=== PATIENT | male | born 1950 | race Caucasian/White ===

== ENCOUNTER 2016-11-21 06:37 | Inpatient (IN) | payer MEDICARE, BC ==
--- NOTE | 2016-11-17 13:24 | PREOPHP ---
DATE OF ADMISSION: 11/21/2016 PREOPERATIVE INTERNAL MEDICINE CONSULTATION, MEDICAL HISTORY AND PHYSICAL The patient to have surgery with Dr. Cayetano Cerda, 11/21/2016. REASON FOR CONSULTATION: Consultation requested by Dr. Cayetano Cerda for medical evaluation and evette arance of a 66-year-old gentleman about to undergo surgery on his cervical spine. Thank you, Dr. Cerda, for allowing us to participate in the care of this patient. HISTORY OF PRESENT ILLNESS: Aamir Sarabia, a 66-year-old gentleman, painful neck, associated neck di scogenic disease, is currently being admitted for correction of the above problem for an anterior ce rvical diskectomy and fusion, C6-C7. PAST SURGICAL HISTORY: He has had a retinal detachment on his left eye, left knee arthroscopic surg zeb x2, cataracts right and left, and plastic surgery in terms of parts of his body. He has had no medical hospitalizations. ALLERGIES: HE IS NOT ALLERGIC TO ANY MEDICATIONS, HOWEVER, IS ALLERGIC TO EGG PRODUCTS. MEDICATIONS: Other than that, his only medications are acyclovir 200 mg a day, and vitamins and min erals and supplements. SOCIAL HISTORY: The patient is single, has no children, does not smoke. Alcohol socially. Does no t drink coffee regularly, is retired currently and usually has no difficulty sleeping at night. FAMILY HISTORY: Both parents are . Father age 71 of a ruptured aortic aneurysm. Moth er, 60, of lung cancer. She was a smoker. One sister is in good health. Other than the above hist ory, he knows of no family history of diabetes, heart, hypertension or stroke, only cancer and that mentioned above. REVIEW OF SYSTEMS: HEENT: Periodic migraine headaches. CARDIORESPIRATORY: Denies any chest pain or shortness of breath. GASTROINTESTINAL: No melena or hematemesis. GENITOURINARY: No urgency, frequency. MUSCULOSKELETAL: Positive for neck pain, as well as knee pain. NEUROPSYCHIATRIC: Unremarkable. GENERAL HEALTH: As above. PHYSICAL EXAMINATION: VITAL SIGNS: The patient's blood pressure was 140/80, pulse was 88 and regular, respirations were 1 8, temperature 98.7, height 6 feet 1 inch, weight 214 pounds. GENERAL: The patient was noted to be a well-developed, well-nourished male, alert and cooperative, in no apparent acute distress, oriented to time, place, and person. HEAD, EARS, EYES, NOSE AND THROAT: Head was atraumatic. Eyes: Pupils were equal, reactive to ligh t and accommodation. Fundi were benign. Tympanic membranes were unremarkable. Nose was negative. Mouth was unremarkable. Fair oral hygiene was present. NECK: Supple without any rigidity. Trachea was midline. Thyroid was unremarkable. Neck veins wer e flat. Carotid pulses were equal. No bruits were heard. BACK: Exam was unremarkable. CHEST: Symmetrical. BREASTS AND AXILLARY: Exam did not reveal any masses. LUNGS: Clear to percussion and auscultation. HEART: PMI was 5th intercostal space at the midclavicular line. A regular sinus rhythm was noted. No significant murmurs, rubs, or gallops being elicited. ABDOMEN: Soft, good bowel sounds were noted. No significant organomegaly, masses, or tenderness. GENITALIA: Normal male external genitalia. RECTAL AND PROSTATIC EXAM: Per PCP. EXTREMITIES: Did not reveal any clubbing, edema or cyanosis. Peripheral pulses were physiologic. SKIN: Moist and warm without any eruptions. No gross lymphadenopathy was noted. NEUROLOGIC: Exam is grossly intact. IMPRESSION: 1. Cervical disk disease. 2. Stable health. DISCUSSION: Review of laboratory and other data revealed the following: The patient's chemistry pa vladimir including glucose, BUN, creatinine and liver function test, magnesium, iron were normal, and nor mal TSH, minimally low vitamin D, normal CBC, PT and PTT as well. The patient's bladder scan reveal ed a residual of 13 mL, which is normal. His EKG was normal as was his chest x-ray. DISCUSSION: Dr. Cerda, I see no contraindication in this patient undergoing current proposed danny finn under desired form of anesthesia; feel he is a suitable candidate at this particular point in t dio, and will be more than happy to follow him with you during his stay at [facility]. Thank you again, Dr. Cerda, for allowing us to participate in care of this patient. Dictated By: ALIZE BREEN MD SS/NTS Conf#: [id number] DID#: [id number] CC: CAYETANO CERDA MD;*EndCC*
[2016-11-18 13:40] VITALS: BMI 28.3
[2016-11-21] VITALS (25 sets, daily range): BP systolic 129–159; BP diastolic 79–100; PULSE 70–100; RESP 11–25; Ht 185.4 cm; Wt 96.6 kg
[~2016-11-21] VITALS: Ht 185.4 cm; Wt 96.6 kg
[~2016-11-21 06:37] MED LIST: LACTATED RINGER'S 1,000 ML IV SCH
[2016-11-21] MEDS ORDERED: CEFAZOLIN 2 GM/50 ML (PMX) 50 ML IVPB SCH (07:00)
[2016-11-21] MEDS ORDERED: ROCURONIUM 50 MG INJ ONE (08:41)
[2016-11-21] MEDS ORDERED: FENTAnyl 50 MCG/ML VIAL ONE ×3 (08:41→13:04)
[2016-11-21] MEDS ORDERED: ETOMIDATE 20 MG INJ ONE (08:41)
[2016-11-21] MEDS ORDERED: SUCCINYLCHOLINE CHLORIDE 100 MG/5 ML SYG IV ONE (08:41)
[2016-11-21] MEDS ORDERED: LIDOCAINE 2% (SDV) 5 ML INJ ONE (08:41)
[2016-11-21] MEDS ORDERED: MIDAZOLAM 1 MG/ML 2 ML INJ ONE (08:41)
[2016-11-21] MEDS ORDERED: ACYC200C2 PO (08:44)
[2016-11-21] MEDS ORDERED: DIPHENHYDRAMINE 50 MG INJ IV PRN (09:00)
[2016-11-21] MEDS ORDERED: METOCLOPRAMIDE 10 MG INJ IV PRN (09:00)
[2016-11-21] MEDS ORDERED: ONDANSETRON 4 MG INJ IV PRN ×2 (09:00→14:00)
[2016-11-21] MEDS ORDERED: OXYCODONE/ACETAMINOPHEN (5/325) TAB PO PRN ×2 (09:00)
[2016-11-21] MEDS ORDERED: MEPERIDINE 25 MG INJ IV PRN (09:00)
[2016-11-21] MEDS ORDERED: FENTAnyl 50 MCG/ML VIAL IV PRN (09:00)
[2016-11-21] MEDS ORDERED: PROCHLORPERAZINE 10 MG INJ IV PRN (09:00)
[2016-11-21] MEDS ORDERED: HYDROmorphONE (0.2 MG/ML) 10ML SYG IV PRN ×2 (09:00)
[2016-11-21] MEDS ORDERED: POLYMYXIN/BACITRACIN 1L IRRIG ONE ×2 (09:36→09:38)
[2016-11-21] MEDS ORDERED: THROMBIN 5000 UNIT VIAL ONE (09:36)
[2016-11-21] MEDS ORDERED: GELATIN SIZE 100 SPONGE ONE (09:36)
[2016-11-21] MEDS ORDERED: BUPIVACAINE 0.25% (MPF) 10 ML 10 ML VIAL ONE (09:36)
[2016-11-21] MEDS ORDERED: OCULAR LUBRICANT 3.5 GM OPH OINT ONE (09:48)
[2016-11-21] MEDS ORDERED: DEXAMETHASONE 4 MG/ML 1 ML INJ ONE (10:19)
[2016-11-21] MEDS ORDERED: ONDANSETRON 4 MG INJ ONE ×2 (10:19→12:42)
[2016-11-21] MEDS ORDERED: POVIDONE IODINE 10% 28.4 GM OINT ONE (10:22)
[2016-11-21] MEDS ORDERED: LABETALOL HCL 20MG INJ ONE (10:53)
[2016-11-21] MEDS ORDERED: HYDROmorphONE 2 MG/ML SYG ONE (10:56)
[2016-11-21] MEDS ORDERED: GLYCOPYRROLATE 1 MG INJ ONE (12:41)
[2016-11-21] MEDS ORDERED: NEOSTIGMINE 3 MG/3 ML SYRINGE ONE (12:41)
[2016-11-21] MEDS ORDERED: CEPASTAT LOZENGE MT PRN (14:00)
[2016-11-21] MEDS ORDERED: BETHANECHOL 25 MG TAB PO PRN (14:00)
[2016-11-21] MEDS ORDERED: PROCHLORPERAZINE 10 MG TAB PO PRN (14:00)
[2016-11-21] MEDS ORDERED: DIAZEPAM 5 MG/ML SYG IM PRN (14:00)
[2016-11-21] MEDS ORDERED: DIAZEPAM 5 MG TAB PO PRN (14:00)
[2016-11-21] MEDS ORDERED: AL HYDROX/MG HYDROX/SIMETH 30 ML CUP PO PRN (14:00)
[2016-11-21] MEDS ORDERED: NALOXONE (0.4 MG/ML) INJ IV PRN (14:00)
[2016-11-21] MEDS ORDERED: ZOLPIDEM 5 MG TAB PO PRN ×2 (14:00→23:30)
[2016-11-21] MEDS ORDERED: NACL 0.9% 3 ML SYG IV SCH (14:00)
[2016-11-21] MEDS ORDERED: DIPHENHYDRAMINE 50 MG CAP PO PRN (14:00)
[2016-11-21] MEDS ORDERED: HYDROCODONE/APAP (5/325) TAB PO PRN ×2 (14:00)
[2016-11-21] MEDS ORDERED: ACETAMINOPHEN 325 MG TAB PO PRN (14:00)
[2016-11-21] MEDS ORDERED: TRIMETHOBENZAMIDE 100 MG/ML VIAL IM PRN (14:00)
[2016-11-21] MEDS: HYDROmorphONE 0.2 MG/ML PCA IV SCH ×2 (14:09→23:38)
--- NOTE | 2016-11-21 15:05 | RADRPT ---
PROCEDURE: XR Cervical Spine. CLINICAL INDICATION: Neck pain. Intraoperative. TECHNIQUE: 8 images of the cervical spine were obtained in the operating room. Multiple frontal an d lateral views were obtained. The images were reviewed on a PACS workstation. COMPARISON: None. FINDINGS: Final images demonstrate anterior fusion with plate and screws at C6-7. IMPRESSION: 1. Intraoperative imaging of the cervical spine. RPTAT: QQ .Christiano Adler MD, MD Date Time Electronically viewed and signed by .Christiano Adler MD, on 11/21/2016 15:04 .R/
--- NOTE | 2016-11-21 16:10 | OPR ---
DATE OF OPERATION: 11/21/2016 PREOPERATIVE DIAGNOSIS: Herniated disk C6-7 on the right. POSTOPERATIVE DIAGNOSIS: Herniated disk C6-7 on the right. OPERATION PERFORMED: 1. Anterior cervical microdiskectomy at C6-7. 2. Anterior cervical interbody arthrodesis at C6-7. 3. Right iliac bone graft. 4. Internal fixation from C6-7 using RTI dynamic plate and screws. SURGEON: Cayetano Brady MD GRINDING MACHINE OPERATOR AUTOMATIC: Katie Yeung PA-C ANESTHESIA: General endotracheal. ANESTHESIOLOGIST: Cady Darling MD ESTIMATED BLOOD LOSS: 20 mL-none replaced. DRAINS: Two Hemovac drains inserted into the cervical wound, 2 Hemovac drains in the right iliac wo und. COMPLICATIONS: None. PERTINENT HISTORY AND PHYSICAL: This is a 66-year-old male with persistent neck and upper extremity complaints, right greater than left, which have been unrelieved by conservative management. He has undergone a number of diagnostic studies including an MRI of the cervical spine which demonstrated herniation of the C6-7 disk on the right, along with multilevel degenerative disk disease. Treatmen t options were discussed with the patient, who elected to proceed with surgery. OPERATIVE FINDINGS AT SURGERY: At surgery degenerative disk at C6-7 along with diffuse disk protrus ion, right greater than left was confirmed. The baseline intraoperative nerve monitoring revealed a decrease in the right C6 potential of 30% and the right C7 potential of 40%. These returned to nor mal at the completion of the surgery. OPERATIVE PROCEDURE: With the patient in supine position after satisfactory induction of general en dotracheal anesthesia by Dr. Darling, the patient was positioned in the supine position with a 5-pound sandbag under the right buttock and a 3 liter IV bottle under the shoulders. The anterior cervical spine and right iliac crest were prepped and draped in usual sterile fashion. Athrombic pumps were applied to the legs below the knees to prevent venous stasis during and after procedure. An indwell ing Shah catheter was also placed preoperatively to facilitate bladder drainage during and after th e procedure. A 5 cm transverse incision was carried out on the anterior aspect of cervical spine approximately 1 fingerbreadth above the left clavicle in line with the left clavicle through skin and subcutaneous t issue to the platysma fascia. Superficial retractors were placed and hemostasis secured with electr ocautery. Throughout the procedure, copious amounts of antibacterial irrigating solution were used to periodically irrigate the wound. The platysma fascia was divided transversely interval between t he sternocleidomastoid and strap muscles was entered with blunt dissection. The trachea and esophag us were mobilized to the right and protected with a hand-held Cloward retractor. The prevertebral s oft tissues were cleared off of the anterior cervical spine using a peanut elevator and two 20 gauge spinal needles were angulated to prevent overpenetration were placed in what was felt to be the C5- 6 and C6-7 disk spaces. A lateral roentgenogram was confirmed anatomic localization. Prior to init iating the procedure a hedge fund accountant lateral x-ray was taken which failed to identify the cervical spine christiane yonis below C5 and [employer] tongs were then applied using aseptic technique to facilitate cervic al traction for the intraoperative radiograph. This allowed visualization down to the top of C7. W hile the x-ray was being reviewed, attention was turned to the right iliac crest where a 3 cm incisi on was carried out 1 inch proximal and 1 inch lateral to the anterior superior iliac spine through s kin and subcutaneous tissue after skin was infiltrated with 0.25% Marcaine without epinephrine. The skin was then retracted to the level of the iliac crest and a fascial incision made directly over t iliac crest. A subperiosteal dissection was carried out on the inner and outer table of the [facility] ilium and a tricortical iliac bone graft measuring 1/2 inch in length and 1 cm deep was then harve sted using a [employer] reciprocating saw and a 1/2 inch curved osteotome and mallet. The don or bone edges were thoroughly irrigated with antibacterial irrigating solution and then hemostasis w as secured with bone wax. This wound was later closed using #1 Vicryl [id number] approximating sutures on the deep fascia, 2-0 Vicryl sutures in subcutaneous tissue, and a 4-0 Vicryl subcuticula r cosmetic closing suture on the skin. Two medium Hemovac drains were then inserted into the wound, one below the fascia and one above the fascia prior to wound closure. Attention then returned to the cervical wound, where the operating microscope was then moved into pl aiden. The Cloward self-retaining retractors were placed underneath the longissimus coli muscles, whi ch were elevated with a hot knife. The 15 blade knife was then used to cut a rectangular window in the annulus and anterior longitudinal ligament at C6-7 and the Cloward interbody distractors were th en used to facilitate disk space distraction. The 0, 20, 30 and 40 straight and angulated Aiyana cur ettes were then used to remove the nuclear contents back to the level of the posterior longitudinal ligament. The posterior longitudinal ligament was then taken down with a 1 mm Kerrison punch from f oramen to foramen to decompress the exiting C7 roots and the spinal cord at that level. The high-sp eed nikos bur was then used to abrade the cartilaginous endplates down to subchondral bleeding bon e. The bone plug which had been harvested from right iliac crest was trimmed to approximately 6 mm in height and 8 mm in depth. It was impacted into place under direct vision. The distractors were then removed, and the bone plug appeared to be quite securely locked in place. It was recessed appr oximately 3 mm. The anterior osteophytes were removed with a [place]ell rongeur to facilitate placemen t of a cervical plate flush against the vertebral body. The RTI implant was then selected and place d on the anterior aspect of the cervical spine and temporarily held in place with temporary screws. This was a 10 mm plate, four 14 mm screws were then used to secure the plate to the anterior aspect of cervical spine, 2 in the body of C6 and 2 in the body of C7 after AP and lateral radiographs wer e taken, which confirmed appropriate positioning of the plate and bone plug. The final screws were secured and final AP and lateral roentgenograms taken, which confirmed appropriate positioning of th e hardware and the bone plug. The wound was then closed over 2 medium Hemovac drains, one below the fascia and one above the fascia using 0 Vicryl sutures on the interval between the sternocleidomast oid and strap muscles, 0 Vicryl sutures on the platysma fascia, 3-0 Vicryl sutures on the subcutaneo us tissue, and a 4-0 Vicryl subcuticular cosmetic closing suture on the skin. Dermabond and sterile dressings were applied. The patient's neck was then immobilized in an [place] collar prior to extuba tion. The [employer] tongs were removed at the completion of the procedure. The patient having tolerated procedure well was then turned to supine position onto his bed and extubated by Dr. Darling. He was transported to recovery room in satisfactory condition. At the conclusion of the procedure, sponge, instrument, and needle counts were all correct. NEED FOR INFORMATION TECHNOLOGY DIRECTOR: During this spinal surgical procedure, my assistant county engineer was used to retrac t and protect the spinal nerves and dural sac. My assistant county engineer also employed the suction catheters to e vacuate blood from the surgical field to improve visualization of the neural structures. The assista nt was medically necessary to facilitate the completion of the surgery in a safe and expeditious man ner. [facility] [place] regulations, as well as hospital bylaws, preclude the use of non-licensed [facility] care personnel such as operating room technicians, to perform these functions. Throughout the procedure, neural monitoring was carried out by [employer] including EMG, SSEP and MEP monitoring of the C4, C5, C6, C7 and C8 nerve roots along with the spina l cord potentials. These were interpreted by neurologist employed by [employer]. Dictated By: CAYETANO BRADY MD TM/NTS Conf#: [id number] DID#: [id number] CC: ALIZE BREEN MD;*EndCC*
[2016-11-21] MEDS: DEXTROSE 5%-0.45% NACL 1,000 ML IV SCH ×2 (16:16→23:36)
--- NOTE | 2016-11-21 16:22 | CONS ---
DATE OF ADMISSION: 11/21/2016 DATE OF CONSULTATION: 11/21/2016 POSTOPERATIVE INTERNAL MEDICINE CONSULT FOLLOWUP HISTORY OF PRESENT ILLNESS: The patient had surgery with Dr. Cayetano Brady on 11/21/2016. Patient seen in the recovery room, alert with his cervical collar in place, no particular complaints and is doing relatively well postoperatively. PHYSICAL EXAMINATION: VITAL SIGNS: Reveals a blood pressure to be 140/98, pulse 70 and regular, respirations 17, temperat ure 97.8 and O2 sat 100%. HEENT: Has a cervical collar in place, otherwise negative. LUNGS: Clear. HEART: Reveals a regular rhythm. IMPRESSION: 1. Status post cervical disk disease. 2. Stable health. DISCUSSION: The patient will be followed medically if his blood pressure remains high, would consid er placing him on a mild antihypertensive, albeit may not be necessary once some of the effects wear off. Thank you again, Dr. Brady, for allowing us to participate in the care of this patient. We will follow him along with you during his stay at [facility]. Dictated By: ALIZE BREEN MD SS/MINDA Conf#: [id number] DID#: [id number]
[2016-11-21] MEDS: CEFAZOLIN 1 GM/50 ML (PMX) 50 ML IVPB SCH ×2 (18:51→23:16)
[2016-11-21] MEDS ORDERED: ACYCLOVIR 200 MG CAP PO SCH (21:00)
[2016-11-21] MEDS: RANITIDINE 150 MG TAB PO SCH (21:31)
[2016-11-22 00:33] VITALS: BP 127/82; RESP 20
[2016-11-22] MEDS: CEFAZOLIN 1 GM/50 ML (PMX) 50 ML IVPB SCH ×2 (05:10→11:29)
[2016-11-22 05:35] LABS: HEMATOCRIT 42.4 % (42.0-52.0); HEMOGLOBIN 14.7 g/dl (14.0-18.0)
[2016-11-22 05:37] LABS: POTASSIUM 4.8 mmol/L (3.5-5.1)
[2016-11-22 05:39] LABS: CREATININE 0.97 mg/dl (0.61-1.24)
[2016-11-22 05:40] LABS: CALCIUM 8.8 mg/dl (8.4-10.2)
--- NOTE | 2016-11-22 07:14 | PN ---
Date/Time of Note Date/Time of Note DATE: 11/22/16 TIME: 07:13 Assessment/Plan Lines/Catheters IV Catheter Type (from Nrsg): Saline Lock Shah in Place (from Nrsg): Yes Subjective 24 Hr Interval Summary Patient is postop day #1 following anterior cervical discectomy and interbody fusion at C6-7 with right iliac bone graft and internal fixation. He is afebrile, and comfortable. His cervical collar is in place. His Hemovac drainage was minimal from the cervical wound and the iliac wound and both drains were removed. The incisions are both clean and dry and have been redressed. His morning lab work was within normal limits. His examination reveals neurovascular structures to be intact distally. Plan is to mobilize him as tolerated with physical therapy until he is deemed independent. He will be discharged home once he is cleared by physical therapy. Discharge instructions and precautions were provided to the patient. Exam/Review of Systems Vital Signs Vitals Vital Signs Date Time Temp Pulse Resp B/P Pulse Ox O2 Delivery O2 Flow Rate FiO2 11/22/16 00:33 99.3 92 20 127/82 97 11/21/16 18:00 Nasal Cannula 11/21/16 15:30 2.0 Intake and Output 11/21/16 11/21/16 11/22/16 15:00 23:00 07:00 Intake Total 2150 ml 660 ml 1680 ml Output Total 430 ml 0 ml 1430 ml Balance 1720 ml 660 ml 250 ml Results Result Diagram: 11/22/16 0420 11/22/16 0420 NEERAJ CERDA MD Nov 22, 2016 07:14
[2016-11-22] MEDS ORDERED: BETHANECHOL 25 MG TAB PO PRN (08:00)
[2016-11-22] MEDS: FERROUS SULFATE (EC) 325 MG TAB PO SCH ×2 (08:48→12:24)
[2016-11-22] MEDS: ACYCLOVIR 200 MG CAP PO SCH ×2 (08:49→09:00)
[2016-11-22] MEDS: RANITIDINE 150 MG TAB PO SCH ×2 (08:49→15:18)
[2016-11-22 08:56] VITALS: BP 142/66; PULSE 76
[2016-11-22] MEDS ORDERED: DOCUSATE SODIUM 100 MG CAP PO SCH (09:00)
[2016-11-22] MEDS ORDERED: ASCORBIC ACID 500 MG TAB PO SCH (09:00)
[2016-11-22] MEDS: DEXTROSE 5%-0.45% NACL 1,000 ML IV SCH (09:33)
--- NOTE | 2016-11-22 09:50 | CONS ---
DATE OF ADMISSION: 11/21/2016 DATE OF CONSULTATION: 11/21/2016 POSTOPERATIVE CONSULTATION FOLLOWUP The patient had surgery with Dr. Cayetano Brady 11/21/2016. HISTORY OF PRESENT ILLNESS: The patient had a relatively decent night; however, did have pain and f elt wired, possibly secondary to the anesthetic versus his pain medications. PHYSICAL EXAMINATION: VITAL SIGNS: Temperature 98.3, pulse 92, respirations 20, blood pressure 127/82, and O2 sat 97% on room air. HEENT: Unremarkable. LUNGS: Clear. HEART: Reveals a regular rhythm. ABDOMEN: Unremarkable. IMPRESSION: 1. Status post cervical spine surgery. The patient with a cervical collar. 2. Stable health. DISCUSSION: Plan per Dr. Brady. Will be ambulating today. Hopefully his catheter will be pulle d. He will be able to urinate without any great difficulty. CONDITION: Postop stable. Thank you, Dr. Brady, for allowing us to participate in the care of this patient. Dictated By: ALIZE OGLESBY/MINDA Conf#: [id number] DID#: [id number]
[2016-11-22 10:49] LABS: ADD UMIC YES; URINE BILIRUBIN (Dip) NEGATIVE (NEGATIVE); URINE BLOOD (Dip) TRACE (NEGATIVE); URINE COLOR LT. YELLOW (YELLOW); URINE GLUCOSE (Dip) NEGATIVE (NEGATIVE); URINE KETONES (Dip) NEGATIVE (NEGATIVE); URINE LEUKOCYTE ESTERASE (Dip) NEGATIVE (NEGATIVE); URINE NITRITE (Dip) NEGATIVE (NEGATIVE); URINE TOTAL PROTEIN (Dip) NEGATIVE (NEGATIVE); URINE UROBILINOGEN (Dip) 0.2 E.U./dL (0.1-1.0)
[2016-11-22 11:06] LABS: URINE RBCS 0-2 /HPF (0)
== END 2016-11-22 16:50 | disposition home or self-care (01) | DRG 473 ==
LOC: REC 06:37 → MS1 15:13
PROVIDERS: ADMIT Orthopaedic Surgery; ATTEND Orthopaedic Surgery
PROC: 0QB20ZZ Excision of Right Pelvic Bone, Open Approach (ICD-10-PCS; 2016-11-21)
PROC: 0RB30ZZ Excision of Cervical Vertebral Disc, Open Approach (ICD-10-PCS; 2016-11-21)
PROC: 0RG1070 Fusion of Cervical Vertebral Joint with Autologous Tissue Substitute, Anterior Approach, Anterior Column, Open Approach (ICD-10-PCS; principal; 2016-11-21 10:00)
DX: M50.223 Other cervical disc displacement at C6-C7 level (principal); M50.30 Other cervical disc degeneration, unspecified cervical region
CPT/HCPCS: 72050; 80048; 81001; 81003; 85014; 85018; 86850; 86870; 86880; 86900; 86901; 86920; 87086; 88304; 97116; 97163; J0330; J0690; J1100; J1170; J2250; J2405; J2710; J3010